=== PATIENT | male | born 1940 | race Caucasian/White ===

== ENCOUNTER → 2018-03-02 | Outpatient (CLI) | payer MEDICARE, BC ==
[~2018-03-02] MED LIST: ASPI325 PO; ATEN25 PO; ATOR80 PO; CEPH500 PO; EZET10 PO; Flomax0.4 MG PO; HYDACE5 PO; METO50ER PO; Norco 5-325 Ta1 EACH PO; OXYACE5T PO; VITS/SUPPS
== END | disposition home or self-care (01) ==
LOC: LAB SHORT 13:58 → PLD 13:58
DX: D48.5 Neoplasm of uncertain behavior of skin (principal)
CPT/HCPCS: 88305

== ENCOUNTER 2018-09-13 20:02 | Emergency (ER) | payer MEDICARE, BC ==
[~2018-09-13] VITALS: Ht 172.7 cm; Wt 83.9 kg
[2018-09-13] MEDS ORDERED: Nortriptyline H10 MG PO (21:32)
[2018-09-13] MEDS ORDERED: GLIP5 PO (21:32)
[2018-09-13] MEDS ORDERED: Metformin HCl1000 MG PO (21:32)
[2018-09-13] MEDS ORDERED: LISI5 PO (21:33)
[2018-09-13] MEDS ORDERED: CHLOROQUINE PH PO (21:33)
[2018-09-13] MEDS ORDERED: CEPH500 PO (21:54)
== END 2018-09-13 23:05 | disposition home or self-care (01) ==
LOC: ER 20:02
DX: S62.521A Displaced fracture of distal phalanx of right thumb, initial encounter for closed fracture (principal); S61.011A Laceration without foreign body of right thumb without damage to nail, initial encounter; Z95.5 Presence of coronary angioplasty implant and graft; Z79.82 Long term (current) use of aspirin; Z79.899 Other long term (current) drug therapy; W45.8XXA Other foreign body or object entering through skin, initial encounter
CPT/HCPCS: 11760; 73140; 96372; 99282-25; J0690

== ENCOUNTER → 2020-04-17 | Outpatient (CLI) | payer MEDICARE, BC ==
[~2020-04-17] MED LIST changes: +CHLOROQUINE PH PO; +GLIP5 PO; +LISI5 PO; +Metformin HCl1000 MG PO; +Nortriptyline H10 MG PO
== END | disposition home or self-care (01) ==
LOC: PLD 11:03 → LAB SHORT 11:03
DX: D04.62 Carcinoma in situ of skin of left upper limb, including shoulder (principal); L57.0 Actinic keratosis
CPT/HCPCS: 88305